=== PATIENT | female | born 1960 | race Two or more races ===

== ENCOUNTER → 2016-05-23 | Outpatient (CLI) | payer OTHER | END | disposition home or self-care (01) | LOC: LAB 09:23 | PROVIDERS: ATTEND Internal Medicine Gastroenterology | DX: R79.89 Other specified abnormal findings of blood chemistry (principal) | CPT/HCPCS: 36415; 83540; 83550; 86704; 86706; 86708; 86803; 87340 ==

== ENCOUNTER → 2016-07-06 | Outpatient (CLI) | payer OTHER | END | disposition home or self-care (01) | LOC: LAB 11:50 | PROVIDERS: ATTEND Family Medicine | DX: Z20.89 Contact with and (suspected) exposure to other communicable diseases (principal) | CPT/HCPCS: 86735; 86762; 86765 ==

== ENCOUNTER → 2016-07-10 | Outpatient (CLI) | payer OTHER | END | disposition home or self-care (01) | LOC: LAB 13:37 | PROVIDERS: ATTEND Internal Medicine Gastroenterology | DX: Z12.11 Encounter for screening for malignant neoplasm of colon (principal) | CPT/HCPCS: 82270 ==

== ENCOUNTER → 2016-07-17 | Outpatient (CLI) | payer OTHER ==
[2016-07-17 10:15] LABS: Basophils # (auto) 0 uL; Basophils % (auto) 0.4 % (0.0-2.0); Eosinophils # (auto) 0.5 uL; Eosinophils % (auto) 5.1 % (0.0-7.0); Hematocrit 44.4 % (36.0-46.0); Hemoglobin 15.3 g/dL (12.2-16.2); Lymphocytes # (auto) 2.8 uL; Lymphocytes % (auto) 28.3 % (10.0-50.0); Mean Corpuscular Hgb Conc. 34.5 g/dL (32.0-36.0); Mean Platelet Volume 8.9 fL (7.4-10.4); Monocytes # (auto) 0.8 uL; Monocytes % (auto) 8.3 % (0.0-12.0); Neutrophils # (auto) 5.6 uL; Neutrophils % (auto) 57.9 % (37.0-80.0); Platelet Count (auto) 291 10^3/uL (140-450); Red Cell Distribution Width 13.3 % (11.6-16.0); White Blood Cell 9.7 10^3/uL (4.4-10.8)
[2016-07-17 10:37] LABS: Partial Thromboplastin Time 26.9 sec (22.64-33.71); Prothrombin Time 10.3 sec (9.37-12.3)
== END | disposition home or self-care (01) ==
LOC: LAB 09:54
PROVIDERS: ATTEND Internal Medicine Gastroenterology
DX: R79.89 Other specified abnormal findings of blood chemistry (principal)
CPT/HCPCS: 36415; 85025; 85610; 85730

== ENCOUNTER → 2016-07-18 | Outpatient (CLI) | payer OTHER ==
[~2016-07-18] MED LIST: LIDOCAINE 2%HCL (LOCAL ANESTH.) INJ 20ML MDV ONE; MIDAZOLAM HCL 1MG/1ML-2 ML VIAL ONE; fentaNYL CITRATE 100 MCG/2 ML VL ONE
== END | disposition home or self-care (01) ==
LOC: CT 09:09
PROVIDERS: ATTEND Internal Medicine Gastroenterology
DX: R94.5 Abnormal results of liver function studies (principal)
CPT/HCPCS: 10022; 77012; J2250; J3010; 96374; 96375

== ENCOUNTER 2016-10-10 17:47 | Emergency (ER) | payer OTHER ==
[~2016-10-10] VITALS: Ht 157.5 cm; Wt 65.8 kg
[2016-10-10 17:57] VITALS: BP 169/88
== END 2016-10-10 23:31 | disposition left against medical advice (07) ==
LOC: ER 17:52
DX: R04.2 Hemoptysis (principal); Z53.21 Procedure and treatment not carried out due to patient leaving prior to being seen by health care provider

== ENCOUNTER 2016-10-12 13:25 | Emergency (ER) | payer OTHER ==
[~2016-10-12] VITALS: Ht 157.5 cm; Wt 65.8 kg
[2016-10-12 13:45] VITALS: BP 186/126
[2016-10-12 14:27] LABS: Basophils # (auto) 0 uL; Basophils % (auto) 0.4 % (0.0-2.0); Eosinophils # (auto) 0.5 uL; Eosinophils % (auto) 4.3 % (0.0-7.0); Hemoglobin 15.4 g/dL (12.2-16.2); Lymphocytes # (auto) 2.9 uL; Lymphocytes % (auto) 27.7 % (10.0-50.0); Mean Corpuscular Hemoglobin 29.8 pg (28.0-32.0); Mean Corpuscular Hgb Conc. 34.3 g/dL (32.0-36.0); Mean Corpuscular Volume 86.8 fL (80.0-100.0); Mean Platelet Volume 8.7 fL (7.4-10.4); Monocytes # (auto) 0.8 uL; Monocytes % (auto) 7.3 % (0.0-12.0); Neutrophils # (auto) 6.3 uL; Neutrophils % (auto) 60.3 % (37.0-80.0); Platelet Count (auto) 335 10^3/uL (140-450); Red Cell Distribution Width 13.8 % (11.6-16.0); White Blood Cell 10.4 10^3/uL (4.4-10.8)
[2016-10-12 15:28] LABS: Alkaline Phosphatase 130 U/L (45-117); Anion Gap 6 (5-15); BUN/Creatinine Ratio 18.2; Blood Urea Nitrogen 12 mg/dL (7-18); Carbon Dioxide 30 mmol/L (21-32); Chloride 104 mmol/L (98-107); GFR African American 119 mL/min; GFR Non-African American 98 mL/min; Glucose 91 mg/dL (74-106); Potassium 4.1 mmol/L (3.5-5.1); Sodium 140 mmol/L (136-145)
[2016-10-12 15:29] LABS: Albumin 3.7 g/dL (3.4-5.0); Aspartate Aminotransferase 18 U/L (15-37); Bilirubin, Total 0.4 mg/dL (0.2-1.0); Calcium 9.2 mg/dL (8.5-10.1); Magnesium 2.3 mg/dL (1.6-2.6)
== END 2016-10-12 15:27 | disposition left against medical advice (07) ==
LOC: ER 13:28
DX: R10.9 Unspecified abdominal pain (principal); K92.0 Hematemesis; Z53.21 Procedure and treatment not carried out due to patient leaving prior to being seen by health care provider
CPT/HCPCS: 36415; 71020; 80053; 83735; 84484; 85025; 93005

== ENCOUNTER → 2017-02-19 | Outpatient (CLI) | payer OTHER ==
[2017-02-19 07:47] LABS: Basophils # (auto) 0.1 uL; Basophils % (auto) 0.9 % (0.0-2.0); Eosinophils # (auto) 0.4 uL; Eosinophils % (auto) 5.8 % (0.0-7.0); Hematocrit 44.6 % (36.0-46.0); Hemoglobin 15.6 g/dL (12.2-16.2); Lymphocytes # (auto) 2.1 uL; Lymphocytes % (auto) 27.9 % (10.0-50.0); Mean Corpuscular Hemoglobin 30.4 pg (28.0-32.0); Mean Corpuscular Volume 86.7 fL (80.0-100.0); Mean Platelet Volume 8.4 fL (6.9-10.8); Monocytes # (auto) 0.5 uL; Monocytes % (auto) 7.1 % (0.0-12.0); Neutrophils # (auto) 4.3 uL; Neutrophils % (auto) 58.3 % (37.0-80.0); Platelet Count (auto) 253 10^3/uL (140-450); Red Cell Distribution Width 13.5 % (11.8-14.3); White Blood Cell 7.4 10^3/uL (4.4-10.8)
[2017-02-19 08:01] LABS: Urine Bilirubin Negative (Negative); Urine Blood Negative /uL (Negative); Urine Color Yellow (Yellow); Urine Glucose Normal (Normal); Urine Ketone Negative (Negative); Urine Mucus FEW (None Seen); Urine Nitrite Negative (Negative); Urine RBC <1 /hpf (0 - 4); Urine Squamous Epithelial Cell FEW /hpf (<5); Urine Urobilinogen Normal (Negative); Urine pH 6.5 (5.0-8.0)
[2017-02-19 08:09] LABS: Albumin 3.5 g/dL (3.4-5.0); Bilirubin, Total 0.5 mg/dL (0.2-1.0); Calcium 9.1 mg/dL (8.5-10.1); Potassium 3.9 mmol/L (3.5-5.1); Total Protein 7.4 g/dL (6.4-8.2)
== END | disposition home or self-care (01) ==
LOC: LAB 07:10
PROVIDERS: ATTEND Family Medicine
DX: Z00.00 Encounter for general adult medical examination without abnormal findings (principal); I10 Essential (primary) hypertension; K74.0 Hepatic fibrosis
CPT/HCPCS: 36415; 80053; 80061; 81001; 82306; 82607; 83036; 84443; 85025

== ENCOUNTER → 2018-02-22 | Outpatient (CLI) | payer OTHER | END | disposition home or self-care (01) | LOC: LAB 08:30 | PROVIDERS: ATTEND Family Medicine | DX: Z00.01 Encounter for general adult medical examination with abnormal findings (principal); Z12.11 Encounter for screening for malignant neoplasm of colon; I10 Essential (primary) hypertension; K75.81 Nonalcoholic steatohepatitis (NASH); F33.0 Major depressive disorder, recurrent, mild; E55.9 Vitamin D deficiency, unspecified | CPT/HCPCS: 82270 ==

== ENCOUNTER → 2018-02-22 | Outpatient (CLI) | payer OTHER ==
[2018-02-22 08:35] LABS: Basophils # (auto) 0.1 uL; Basophils % (auto) 0.6 % (0.0-2.0); Eosinophils # (auto) 0.5 uL; Eosinophils % (auto) 4.8 % (0.0-7.0); Hematocrit 48.1 % (36.0-46.0); Hemoglobin 16.3 g/dL (12.2-16.2); Lymphocytes # (auto) 2.3 uL; Lymphocytes % (auto) 24.5 % (10.0-50.0); Mean Corpuscular Hemoglobin 30.1 pg (28.0-32.0); Mean Corpuscular Volume 88.6 fL (80.0-100.0); Monocytes # (auto) 0.7 uL; Monocytes % (auto) 7.7 % (0.0-12.0); Neutrophils # (auto) 5.8 uL; Neutrophils % (auto) 62.4 % (37.0-80.0); Nucleated Red Blood Cells % 0.2 %; Platelet Count (auto) 282 10^3/uL (140-450); Red Blood Cells 5.43 10^6/uL (4.0-5.20); Red Cell Distribution Width 13.1 % (11.8-14.3); White Blood Cell 9.4 10^3/uL (4.4-10.8)
[2018-02-22 08:42] LABS: Urine Bacteria NONE SEEN /hpf (None Seen); Urine Blood Negative /uL (Negative); Urine Mucus FEW (None Seen); Urine Specific Gravity 1.017 (1.001-1.035); Urine WBC 5 /hpf (0 - 5)
[2018-02-22 08:50] LABS: Albumin 3.6 g/dL (3.4-5.0); Potassium 4.2 mmol/L (3.5-5.1)
[2018-02-22 08:54] LABS: BUN/Creatinine Ratio 13.2; Calcium 8.9 mg/dL (8.5-10.1)
[2018-02-22 08:55] LABS: Bilirubin, Total 0.6 mg/dL (0.2-1.0); Total Protein 7.7 g/dL (6.4-8.2)
== END | disposition home or self-care (01) ==
LOC: LAB 07:11
PROVIDERS: ATTEND Family Medicine
DX: Z00.01 Encounter for general adult medical examination with abnormal findings (principal); Z12.11 Encounter for screening for malignant neoplasm of colon; I10 Essential (primary) hypertension; E55.9 Vitamin D deficiency, unspecified; K75.81 Nonalcoholic steatohepatitis (NASH); F33.0 Major depressive disorder, recurrent, mild
CPT/HCPCS: 36415; 80053; 80061; 81001; 82306; 83036; 84443; 85025

== ENCOUNTER → 2019-09-25 | Outpatient (CLI) | payer OTHER ==
[2019-09-25 09:29] LABS: BUN/Creatinine Ratio 13.9; Calcium 9.8 mg/dL (8.5-10.1); Potassium 3.6 mmol/L (3.5-5.1)
== END | disposition home or self-care (01) ==
LOC: LAB 07:56
PROVIDERS: ATTEND Family Medicine
DX: Z01.812 Encounter for preprocedural laboratory examination (principal); D35.2 Benign neoplasm of pituitary gland
CPT/HCPCS: 36415; 80048

== ENCOUNTER → 2019-09-26 | Outpatient (CLI) | payer OTHER ==
[~2019-09-26] MED LIST changes: +IOHEXOL 300 MG/ML 100ML BOTTLE IJ ONE; -LIDOCAINE 2%HCL (LOCAL ANESTH.) INJ 20ML MDV ONE; -MIDAZOLAM HCL 1MG/1ML-2 ML VIAL ONE; -fentaNYL CITRATE 100 MCG/2 ML VL ONE
== END | disposition home or self-care (01) ==
LOC: CT 09:00
PROVIDERS: ATTEND Family Medicine
DX: D35.2 Benign neoplasm of pituitary gland (principal); I70.0 Atherosclerosis of aorta
CPT/HCPCS: 70488; 70553; Q9967

== ENCOUNTER → 2021-04-16 | Outpatient (CLI) | payer OTHER, BC ==
[2021-04-16 09:18] LABS: Basophils # (auto) 0.1 10 ^3/uL (0-0.2); Basophils % (auto) 0.9 % (0.0-2.0); Eosinophils # (auto) 0.4 10 ^3/uL (0-0.8); Eosinophils % (auto) 4.7 % (0.0-7.0); Hematocrit 43.9 % (36.0-46.0); Hemoglobin 15.4 g/dL (12.2-16.2); Lymphocytes # (auto) 1.8 10 ^3/uL (0.4-5.4); Lymphocytes % (auto) 23.6 % (10.0-50.0); Mean Corpuscular Hemoglobin 30.5 pg (28.0-32.0); Mean Corpuscular Hgb Conc. 35.2 g/dL (32.0-36.0); Mean Corpuscular Volume 86.7 fL (80.0-100.0); Monocytes # (auto) 0.6 10 ^3/uL (0-1.3); Monocytes % (auto) 7.8 % (0.0-12.0); Neutrophils # (auto) 4.9 10 ^3/uL (1.6-8.6); Red Blood Cells 5.06 10^6/uL (4.0-5.20); Red Cell Distribution Width 13.6 % (11.8-14.3); Urine Bacteria FEW /hpf (None Seen); Urine Blood Negative /uL (Negative); Urine Mucus FEW (None Seen); Urine WBC 4 /hpf (0 - 5); White Blood Cell 7.8 10^3/uL (4.4-10.8)
[2021-04-16 09:31] LABS: Albumin 3.5 g/dL (3.4-5.0); Calcium 9.5 mg/dL (8.5-10.1); Potassium 4.1 mmol/L (3.5-5.1)
[2021-04-16 09:35] LABS: Bilirubin, Total 0.6 mg/dL (0.2-1.0); Total Protein 7.1 g/dL (6.4-8.2)
== END | disposition home or self-care (01) ==
LOC: LAB 08:25
PROVIDERS: ATTEND Family Medicine
DX: I10 Essential (primary) hypertension (principal); F41.9 Anxiety disorder, unspecified; F33.0 Major depressive disorder, recurrent, mild; D53.2 Scorbutic anemia; J47.9 Bronchiectasis, uncomplicated
CPT/HCPCS: 36415; 80053; 80061; 81001; 82306; 82607; 84443; 85025

== ENCOUNTER → 2021-09-12 | Outpatient (CLI) | payer BC ==
[2021-09-12 08:41] LABS: Basophils # (auto) 0.1 10 ^3/uL (0-0.2); Basophils % (auto) 0.9 % (0.0-2.0); Eosinophils # (auto) 0.4 10 ^3/uL (0-0.8); Eosinophils % (auto) 4.3 % (0.0-7.0); Hematocrit 44.6 % (36.0-46.0); Hemoglobin 15.7 g/dL (12.2-16.2); Lymphocytes # (auto) 2.2 10 ^3/uL (0.4-5.4); Lymphocytes % (auto) 25.8 % (10.0-50.0); Mean Corpuscular Hemoglobin 30.7 pg (28.0-32.0); Mean Corpuscular Hgb Conc. 35.2 g/dL (32.0-36.0); Mean Corpuscular Volume 87.1 fL (80.0-100.0); Monocytes # (auto) 0.6 10 ^3/uL (0-1.3); Monocytes % (auto) 7.7 % (0.0-12.0); Neutrophils # (auto) 5.1 10 ^3/uL (1.6-8.6); Neutrophils % (auto) 61.3 % (37.0-80.0); Nucleated Red Blood Cells % 0.1 %; Red Blood Cells 5.12 10^6/uL (4.0-5.20); Red Cell Distribution Width 13.5 % (11.8-14.3); White Blood Cell 8.4 10^3/uL (4.4-10.8)
[2021-09-12 08:52] LABS: Urine Bacteria NONE SEEN /hpf (None Seen); Urine Blood Negative /uL (Negative); Urine Mucus FEW (None Seen); Urine Specific Gravity 1.019 (1.001-1.035); Urine WBC 3 /hpf (0 - 5)
[2021-09-12 09:02] LABS: Albumin 3.6 g/dL (3.4-5.0); Calcium 10.2 mg/dL (8.5-10.1); Potassium 4.2 mmol/L (3.5-5.1)
[2021-09-12 09:08] LABS: BUN/Creatinine Ratio 19.7; Bilirubin, Total 0.6 mg/dL (0.2-1.0); Total Protein 7.7 g/dL (6.4-8.2)
== END | disposition home or self-care (01) ==
LOC: LAB 08:09
PROVIDERS: ATTEND Student in an Organized Health Care Education/Training Program
DX: Z12.11 Encounter for screening for malignant neoplasm of colon (principal); I10 Essential (primary) hypertension; R73.9 Hyperglycemia, unspecified
CPT/HCPCS: 36415; 80053; 80061; 81001; 82274; 83036; 85025

== ENCOUNTER → 2022-07-17 | Outpatient (CLI) | payer BC ==
[2022-07-17 08:48] LABS: Urine Bacteria NONE SEEN /hpf (None Seen); Urine Blood Negative /uL (Negative); Urine Mucus FEW (None Seen); Urine Specific Gravity 1.018 (1.001-1.035); Urine WBC 2 /hpf (0 - 5)
[2022-07-17 09:06] LABS: Basophils # (auto) 0.3 10 ^3/uL (0-0.2); Basophils % (auto) 3.6 % (0.0-2.0); Eosinophils # (auto) 0.5 10 ^3/uL (0-0.8); Hematocrit 45.6 % (36.0-46.0); Hemoglobin 16.1 g/dL (12.2-16.2); Lymphocytes # (auto) 1.5 10 ^3/uL (0.4-5.4); Lymphocytes % (auto) 16.2 % (10.0-50.0); Mean Corpuscular Hemoglobin 31.4 pg (28.0-32.0); Mean Corpuscular Hgb Conc. 35.3 g/dL (32.0-36.0); Mean Corpuscular Volume 88.8 fL (80.0-100.0); Monocytes # (auto) 0.4 10 ^3/uL (0-1.3); Monocytes % (auto) 4.1 % (0.0-12.0); Neutrophils # (auto) 6.7 10 ^3/uL (1.6-8.6); Neutrophils % (auto) 71.1 % (37.0-80.0); Nucleated Red Blood Cells % 0.1 %; Red Blood Cells 5.14 10^6/uL (4.0-5.20); Red Cell Distribution Width 13.7 % (11.8-14.3); White Blood Cell 9.5 10^3/uL (4.4-10.8)
[2022-07-17 09:40] LABS: Albumin 4.1 g/dL (3.4-5.0); Calcium 10.5 mg/dL (8.5-10.1); Potassium 3.7 mmol/L (3.5-5.1)
[2022-07-17 09:54] LABS: BUN/Creatinine Ratio 18.2; Bilirubin, Total 0.5 mg/dL (0.2-1.0); Total Protein 7.9 g/dL (6.4-8.2)
== END | disposition home or self-care (01) ==
LOC: LAB 08:08
PROVIDERS: ATTEND Student in an Organized Health Care Education/Training Program
DX: I10 Essential (primary) hypertension (principal); R03.0 Elevated blood-pressure reading, without diagnosis of hypertension
CPT/HCPCS: 36415; 80053; 80061; 81001; 83036; 84443; 85025

== ENCOUNTER → 2022-12-22 | Outpatient (CLI) | payer BC ==
[2022-12-22 09:33] LABS: Basophils # (auto) 0.1 10 ^3/uL (0-0.2); Basophils % (auto) 0.7 % (0.0-2.0); Eosinophils # (auto) 0.4 10 ^3/uL (0-0.8); Hematocrit 44.7 % (36.0-46.0); Hemoglobin 15.2 g/dL (12.2-16.2); Lymphocytes # (auto) 2.2 10 ^3/uL (0.4-5.4); Lymphocytes % (auto) 23.2 % (10.0-50.0); Mean Corpuscular Hemoglobin 29.8 pg (28.0-32.0); Mean Corpuscular Hgb Conc. 33.9 g/dL (32.0-36.0); Mean Corpuscular Volume 87.9 fL (80.0-100.0); Monocytes # (auto) 0.7 10 ^3/uL (0-1.3); Neutrophils % (auto) 64.1 % (37.0-80.0); Nucleated Red Blood Cells % 0.1 %; Red Blood Cells 5.09 10^6/uL (4.0-5.20); Red Cell Distribution Width 13.2 % (11.8-14.3); White Blood Cell 9.4 10^3/uL (4.4-10.8)
[2022-12-22 09:39] LABS: Potassium 4.1 mmol/L (3.5-5.1)
[2022-12-22 09:41] LABS: Urine Bacteria NONE SEEN /hpf (None Seen); Urine Blood Negative /uL (Negative); Urine Clarity Clear (Clear); Urine Color Yellow (Yellow); Urine Mucus FEW (None Seen); Urine Protein, UAD TRACE (Negative); Urine Specific Gravity 1.021 (1.001-1.035); Urine Urobilinogen Normal (Negative); Urine WBC 3 /hpf (0 - 5); Urine pH 5.5 (5.0-8.0)
== END | disposition home or self-care (01) ==
LOC: LAB 08:34
PROVIDERS: ATTEND Student in an Organized Health Care Education/Training Program
DX: I10 Essential (primary) hypertension (principal); E78.5 Hyperlipidemia, unspecified
CPT/HCPCS: 36415; 80048; 80061; 81001; 84443; 85025

== ENCOUNTER → 2023-04-16 | Outpatient (CLI) | payer BC ==
[2023-04-16 07:52] LABS: Basophils # (auto) 0.1 10 ^3/uL (0-0.2); Basophils % (auto) 0.9 % (0.0-2.0); Eosinophils # (auto) 0.4 10 ^3/uL (0-0.8); Eosinophils % (auto) 4.3 % (0.0-7.0); Hematocrit 45.7 % (36.0-46.0); Hemoglobin 15.4 g/dL (12.2-16.2); Lymphocytes # (auto) 2.3 10 ^3/uL (0.4-5.4); Lymphocytes % (auto) 24.9 % (10.0-50.0); Mean Corpuscular Hemoglobin 29.6 pg (28.0-32.0); Mean Corpuscular Hgb Conc. 33.7 g/dL (32.0-36.0); Mean Corpuscular Volume 87.7 fL (80.0-100.0); Monocytes # (auto) 0.7 10 ^3/uL (0-1.3); Monocytes % (auto) 7.6 % (0.0-12.0); Neutrophils # (auto) 5.8 10 ^3/uL (1.6-8.6); Neutrophils % (auto) 62.3 % (37.0-80.0); Nucleated Red Blood Cells % 0.1 %; Red Blood Cells 5.21 10^6/uL (4.0-5.20); Red Cell Distribution Width 13.7 % (11.8-14.3); White Blood Cell 9.3 10^3/uL (4.4-10.8)
[2023-04-16 08:03] LABS: Triglycerides 85 mg/dL (< 150)
[2023-04-16 08:04] LABS: Alanine Aminotransferase 28 U/L (7-40); Albumin 4.5 g/dL (3.2-4.8); Alkaline Phosphatase 101 U/L (46-116); Anion Gap 6 (5-15); Aspartate Aminotransferase 22 U/L (13-40); BUN/Creatinine Ratio 18.2 (10.0-20.0); Bilirubin, Total 0.7 mg/dL (0.2-1.0); Blood Urea Nitrogen 14 mg/dL (9-23); Calcium 10.1 mg/dL (8.5-10.1); Carbon Dioxide 29 mmol/L (20-30); Chloride 107 mmol/L (98-107); Cholesterol 175 mg/dL (< 200); Glucose 97 mg/dL (74-106); HDL Cholesterol 52 mg/dL (40-59); LDL Cholesterol 122 mg/dL (< 100); Sodium 142 mmol/L (136-145); Total Protein 7.1 g/dL (5.7-8.2); Urine Blood 3+ /uL (Negative); Urine Clarity Clear (Clear); Urine Color Yellow (Yellow); Urine Protein, UAD TRACE (Negative); Urine Urobilinogen Normal (Negative); Urine pH 6.5 (5.0-8.0)
== END | disposition home or self-care (01) ==
LOC: LAB 07:21
DX: I10 Essential (primary) hypertension (principal)
CPT/HCPCS: 36415; 80053; 80061; 81003; 83036; 84443; 85025

== ENCOUNTER → 2023-05-16 | Outpatient (CLI) | payer BC ==
[2023-05-16 08:03] LABS: Chloride 107 mmol/L (98-107); Potassium 4.1 mmol/L (3.5-5.1); Sodium 142 mmol/L (136-145)
[2023-05-16 08:04] LABS: Anion Gap 6 (5-15); Calcium 10.3 mg/dL (8.5-10.1); Carbon Dioxide 29 mmol/L (20-30)
[2023-05-16 08:09] LABS: Blood Urea Nitrogen 9 mg/dL (9-23); Glucose 104 mg/dL (74-106)
== END | disposition home or self-care (01) ==
LOC: LAB 07:29
PROVIDERS: ATTEND Student in an Organized Health Care Education/Training Program
DX: N28.89 Other specified disorders of kidney and ureter (principal)
CPT/HCPCS: 36415; 80048

== ENCOUNTER → 2023-11-20 | Outpatient (CLI) | payer BC ==
[2023-11-20 07:24] LABS: Urine Bacteria None Seen /hpf (None Seen)
[2023-11-20 07:34] LABS: Basophils # (auto) 0.1 10 ^3/uL (0-0.2); Basophils % (auto) 0.6 % (0.0-2.0); Eosinophils # (auto) 0.3 10 ^3/uL (0-0.8); Eosinophils % (auto) 3.7 % (0.0-7.0); Hematocrit 45.5 % (36.0-46.0); Lymphocytes # (auto) 1.9 10 ^3/uL (0.4-5.4); Lymphocytes % (auto) 20.2 % (10.0-50.0); Mean Corpuscular Hemoglobin 30.2 pg (28.0-32.0); Mean Corpuscular Hgb Conc. 35.2 g/dL (32.0-36.0); Mean Corpuscular Volume 85.7 fL (80.0-100.0); Monocytes # (auto) 0.7 10 ^3/uL (0-1.3); Monocytes % (auto) 7.6 % (0.0-12.0); Neutrophils # (auto) 6.3 10 ^3/uL (1.6-8.6); Neutrophils % (auto) 67.9 % (37.0-80.0); Nucleated Red Blood Cells % 0.1 %; White Blood Cell 9.3 10^3/uL (4.4-10.8)
[2023-11-20 08:24] LABS: Urine Blood Negative /uL (Negative); Urine Clarity Clear (Clear); Urine Color Yellow (Yellow); Urine Mucus FEW (None Seen); Urine Protein, UAD 1+ (Negative); Urine Specific Gravity 1.025 (1.001-1.035); Urine Urobilinogen 2 mg/dL (Negative); Urine WBC 1 /hpf (0 - 5)
[2023-11-20 08:50] LABS: Alkaline Phosphatase 115 U/L (46-116)
[2023-11-20 08:51] LABS: Alanine Aminotransferase 27 U/L (7-40); Albumin 4.4 g/dL (3.2-4.8); Anion Gap 5 (5-15); Aspartate Aminotransferase 16 U/L (13-40); BUN/Creatinine Ratio 15.6 (10.0-20.0); Bilirubin, Total 0.6 mg/dL (0.2-1.0); Blood Urea Nitrogen 12 mg/dL (9-23); Calcium 10.6 mg/dL (8.5-10.1); Carbon Dioxide 30 mmol/L (20-30); Chloride 108 mmol/L (98-107); Glucose 106 mg/dL (74-106); Potassium 4.7 mmol/L (3.5-5.1); Sodium 143 mmol/L (136-145); Total Protein 7.1 g/dL (5.7-8.2)
== END | disposition home or self-care (01) ==
LOC: LAB 07:14
PROVIDERS: ATTEND Student in an Organized Health Care Education/Training Program
DX: Z12.11 Encounter for screening for malignant neoplasm of colon (principal); I10 Essential (primary) hypertension
CPT/HCPCS: 36415; 80053; 81001; 82274; 85025

== ENCOUNTER → 2024-05-19 | Outpatient (CLI) | payer BC ==
[2024-05-19 08:54] LABS: Urine Bacteria None Seen /hpf (None Seen)
[2024-05-19 09:50] LABS: Basophils # (auto) 0.1 10 ^3/uL (0-0.2); Basophils % (auto) 0.8 % (0.0-2.0); Eosinophils # (auto) 0.4 10 ^3/uL (0-0.8); Eosinophils % (auto) 4.2 % (0.0-7.0); Hematocrit 47.7 % (36.0-46.0); Hemoglobin 16.2 g/dL (12.2-16.2); Lymphocytes % (auto) 23.9 % (10.0-50.0); Mean Corpuscular Volume 88.4 fL (80.0-100.0); Monocytes # (auto) 0.6 10 ^3/uL (0-1.3); Neutrophils # (auto) 5.3 10 ^3/uL (1.6-8.6); Neutrophils % (auto) 64.1 % (37.0-80.0); Nucleated Red Blood Cells % 0.2 %; Platelet Count (auto) 254 10^3/uL (140-450); Red Cell Distribution Width 13.9 % (11.8-14.3); White Blood Cell 8.3 10^3/uL (4.4-10.8)
[2024-05-19 10:34] LABS: Albumin 4.4 g/dL (3.2-4.8); Alkaline Phosphatase 114 U/L (46-116); Anion Gap 8 (5-15); Aspartate Aminotransferase 29 U/L (13-40); BUN/Creatinine Ratio 16.2 (10.0-20.0); Blood Urea Nitrogen 12 mg/dL (9-23); Carbon Dioxide 29 mmol/L (20-31); Chloride 106 mmol/L (98-107); Cholesterol 179 mg/dL (< 200); Glucose 95 mg/dL (74-106); Potassium 4.4 mmol/L (3.5-5.1); Sodium 143 mmol/L (136-145); Triglycerides 79 mg/dL (< 150)
[2024-05-19 10:35] LABS: Bilirubin, Total 0.6 mg/dL (0.2-1.0); HDL Cholesterol 53 mg/dL (40-59); Total Protein 7.2 g/dL (5.7-8.2)
[2024-05-19 10:37] LABS: Alanine Aminotransferase 45 U/L (7-40); Calcium 11.1 mg/dL (8.7-10.4); LDL Cholesterol 124 mg/dL (< 100)
[2024-05-19 11:07] LABS: Urine Blood Negative /uL (Negative); Urine Clarity Clear (Clear); Urine Color Light-Yellow (Yellow); Urine Mucus FEW (None Seen); Urine Protein, UAD Negative (Negative); Urine Specific Gravity 1.019 (1.001-1.035); Urine Squamous Epithelial Cell FEW /hpf (<5); Urine Urobilinogen Normal (Negative); Urine WBC <1 /hpf (0 - 5)
== END | disposition home or self-care (01) ==
LOC: LAB 08:40
PROVIDERS: ATTEND Student in an Organized Health Care Education/Training Program
DX: I10 Essential (primary) hypertension (principal); R73.9 Hyperglycemia, unspecified
CPT/HCPCS: 36415; 80053; 80061; 81001; 83036; 84443; 85025

== ENCOUNTER 2024-11-20 08:35 | Inpatient (IN) | payer MEDICARE, BC ==
[~2024-11-20] VITALS: Ht 154.9 cm; Wt 72.1 kg
--- NOTE | 2024-11-20 09:00 | ED.PDOC ---
GI ASSESSMENT HPI Comments A 64 YEAR OLD FEMALE PRESENTS TO THE ED WITH COMPLAINT OF ABDOMINAL PAIN. PATIENT STATES THAT HER PAIN IS LOCALIZED TO HER RIGHT UPPER QUADRANT, RADIATING TO HER MIDDLE BACK, DESCRIBES SHARP, AND RATES HER PAIN A 7/10. PATIENT DENIES ANY NAUSEA, VOMITING OR DIARRHEA WITH HER ABDOMEN PAIN. PATIENT STILL HAS HER GALLBLADDER. PT WENT TO URGENT CARE TODAY AND URGENT CARE SENT PT TO ER FOR EVALUATION. PATIENT DENIES FEVER, CHILLS, SHORTNESS OF BREATH, CHEST PAIN, NAUSEA, VOMITING, HEADACHE, OR OTHER COMPLAINTS. NO OTHER SYMPTOMS OR MODIFYING FACTORS AT THIS TIME. PATIENT IS ALERT, ORIENTED X 4, AND HAS STEADY GAIT. Time Seen by MD: 08:50 Reviewed Notes: Nurses Notes, Medications, Allergies Allergies: Coded Allergies: Codeine (Verified Allergy, Unknown, 10/12/16) Information Source: Patient Mode of Arrival: Ambulatory Timing: Days Duration: Since onset, Days Prehospital treatment: None Quality: Cramping, Sharp, Colicky Vomitus: None Stool: Normal Severity: Moderate Recent: None Recent Hx of: None Pain Location: RUQ, Other (FLANK ) Modifying Factors: Nothing Associated sign and symptoms: Abdominal Pain Past Medical History PAST MEDICAL HISTORY: Denies Surgical History: Denies all surgeries [employer] History: No Pertinent [employer] History Family History Family History: Reviewed,noncontributory to illness Social History Smoker: Non-Smoker Alcohol: Denies ETOH Use Drugs: Denies Drug Use Lives In: Home Constitutional: denies: chills, diaphoresis, fatigue, fever, malaise, sweats, weakness, others EENTM: denies: blurred vision, double vision, ear bleeding, ear discharge, ear drainage, ear pain, ear ringing, eye pain, eye redness, hearing loss, mouth pain, mouth swelling, nasal discharge, nose bleeding, nose congestion, nose pain, photophobia, tearing, throat pain, throat swelling, voice changes, others Respiratory: denies: cough, hemoptysis, orthopnea, SOB at rest, shortness of breath, SOB with excertion, stridor, wheezing, others Cardiovascular: denies: chest pain, dizzy spells, diaphoresis, Dyspnea on exertion, edema, irregular heart beat, left arm pain, lightheadedness, palp itations, PND, syncope, others Gastrointestinal: reports: abdominal pain; denies: abdomen distended, blood streaked bowels, constipated, diarrhea, dysphagia, difficulty swallowing, hematemesis, melena, nausea, poor appetite, poor fluid intake, rectal bleeding, rectal pain, vomiting, others Genitourinary: reports: flank pain; denies: abnormal vagina bleeding, burning, dyspareunia, dysuria, frequency, hematuria, incontinence, pain, , vagina discharge, urgency, others Neurological: denies: dizziness, fainting, headache, left sided numbness, left sided weakness, numbness, paresthesia, pre-existing deficit, right sided numbness, right sided weakness, seizure, speech problems, tingling, tremors, weakness, others Musculoskeletal: denies: back pain, gout, joint pain, joint swelling, muscle pain, muscle stiffness, neck pain, others Integumetry: denies: bruises, change in color, change in hair/nails, dryness, laceration, lesions, lumps, rash, wounds, others Allergic/Immunocompromised: denies: Difficulty Healing, Frequent Infections, Hives, Itching, others Hematologic/Lymphatic: denies: anemia, blood clots, easy bleeding, easy bruising, swollen glands, others Endocrine: denies: excessive hunger, excessive sweating, excessive thirst, excessive urination, flushing, intolerance to cold, intolerance to heat, unexplained weight gain, unexplained weight loss, others Psychiatric: denies: anxiety, bipolar disorder, depression, hopeless, panic disorder, schizophrenia, sleepless, suicidal, others All Other Systems: Reviewed and Negative Physical Exam General Appearance: No Apparent Distress, Normal HEENT: Normal ENT Inspection, PERRL/EOMI, Pharynx Normal, TMs Normal Neck: Full Range of Motion, Non-Tender, Normal, Normal Inspection Respiratory: Chest Non-Tender, Lungs Clear, No Accessory Muscle Use, No Respiratory Distress, Normal Breath Sounds Cardiovascular: No Edema, No JVD, No Murmur, No Gallop, Normal Peripheral Pulses, Regular Rate/Rhythm Breast Exam: Deferred Gastrointestinal: No Organomegaly, No Pulsatile Mass, Normal Bowel Sounds, RUQ, Soft, Tenderness (RIGHT UPPER ABD AND FLANK WITH GUARDING, NO REBOUND TENDERNESS, +CVA TENDERNESS. ) Genitalia: Deferred Pelvic: Deferred Rectal: Deferred Extremities: No calf tenderness, Normal capillary refill, Normal inspection, N ormal range of motion, Non-tender, No pedal edema Musculoskeletal : Apperance: Normal Neurologic: Alert, condenser setter II-XII nml as Tested, No Motor Deficits, Normal Affect, Normal Mood, No Sensory Deficits Cerebellar Function: Normal Reflexes: Normal Skin: Dry, Normal Color, Warm Peripheral Pulses: 2+ carotid (R), 2+ carotid (L) Lymphatic: No Adenopathy Was a procedure done? Was a procedure done?: No GI differential Dx Differential Diagnosis: Cholangitis, Cholecystitis, Constipation, Gastritis/PUD, Gastroenteritis, UTI, Urolithiasis X-Ray, Labs, Meds, VS Vital Signs Date Time Temp Pulse Resp B/P (MAP) Pulse Ox O2 Delivery O2 Flow Rate FiO2 11/20/24 11:07 98.4 64 18 140/84 (102) 95 98.4 11/20/24 08:40 98.7 95 16 137/91 (106) 93 98.7 Lab Test 11/20/24 08:51 11/20/24 08:45 Range/Units White Blood Count 11.3 H 4.4-10.8 10^3/uL Red Blood Count 5.60 H 4.0-5.20 10^6/uL Hemoglobin 16.8 H 12.2-16.2 g/dL Hematocrit 48.5 H 36.0-46.0 % Mean Corpuscular Volume 86.5 80.0-100.0 fL Mean Corpuscular Hemoglobin 30.0 28.0-32.0 pg Mean Corpuscular Hemoglobin Concent 34.7 32.0-36.0 g/dL Red Cell Distribution Width 13.7 11.8-14.3 % Platelet Count 287 140-450 10^3/uL Mean Platelet Volume 9.0 6.9-10.8 fL Neutrophils (%) (Auto) 71.3 37.0-80.0 % Lymphocytes (%) (Auto) 17.8 10.0-50.0 % Monocytes (%) (Auto) 8.2 0.0-12.0 % Eosinophils (%) (Auto) 2.0 0.0-7.0 % Basophils (%) (Auto) 0.7 0.0-2.0 % Neutrophils # (Auto) 8.1 1.6-8.6 10 ^3/uL Lymphocytes # (Auto) 2.0 0.4-5.4 10 ^3/uL Monocytes # (Auto) 0.9 0-1.3 10 ^3/uL Eosinophils # (Auto) 0.2 0-0.8 10 ^3/uL Basophils # (Auto) 0.1 0-0.2 10 ^3/uL Nucleated Red Blood Cells 4.1 % Sodium Level 141 136-145 mmol/L Potassium Level 4.0 3.5-5.1 mmol/L Chloride Level 105 98-107 mmol/L Carbon Dioxide Level 28 20-31 mmol/L Anion Gap 8 5-15 Blood Urea Nitrogen 9 9-23 mg/dL Creatinine 0.72 0.550-1.02 mg/dL Glomerular Filtration Rate Calc 93 >90 mL/min BUN/Creatinine Ratio 12.5 10.0-20.0 Serum Glucose 91 74-106 mg/dL Calcium Level 11.1 H 8.7-10.4 mg/dL Total Bilirubin 0.6 0.2-1.0 mg/dL Aspartate Amino Transferase (AST) 24 13-40 U/L Alanine Aminotransferase (ALT) 26 7-40 U/L Alkaline Phosphatase 115 46-116 U/L Total Protein 7.4 5.7-8.2 g/dL Albumin 4.7 3.2-4.8 g/dL Lipase 37 12-53 U/L Urine Color Yellow Yellow Urine Clarity Clear Clear Urine pH 7.0 5.0-9.0 Urine Specific [place] 1.013 1.001-1.035 Urine Protein Negative Negative Urine Ketones Negative Negative Urine Blood Negative Negative /uL Urine Nitrite Negative Negative Urine Bilirubin Negative Negative Urine Urobilinogen Normal Negative mg/dL Urine Leukocyte Esterase Trace Negative /uL Urine RBC 1 0 - 4 /hpf Urine Microscopic WBC 1 0-5 /HPF Urine Squamous Epithelial Cells Few <5 /hpf Urine Bacteria None seen None Seen /hpf Urine Glucose Normal Normal mg/dL Current Medications Medications (Trade) Dose Ordered Sig/Chidi Route Start Time Stop Time Status Last Admin Sodium Chloride 1,000 ml @ 1,000 mls/hr Q1H ONCE IV 11/20/24 13:15 11/20/24 14:14 DC 11/20/24 13:19 Ketorolac Tromethamine (Toradol Injection) 30 mg ONCE ONCE IV 11/20/24 13:15 11/20/24 13:16 DC 11/20/24 13:19 Metronidazole 100 ml @ 100 mls/hr ONCE ONCE IV 11/20/24 14:00 11/20/24 14:59 11/20/24 14:41 PATIENT: KINGSLEY HAYWOODCCT: [id number]: [id number] : 1960 LOC: ER ROOM / BED: / AGE / SEX: 64 / F ADM STATUS: REG ER SERVICE [id number] ORDERING PHYSICIAN: JESE CHRIS PROCEDURE(s): GBUS - GALLBLADDER REASON: RIGHT UPPER ABD PAIN TO MIDDLE BACK ORDER NUMBER(s): [id number], ACCESSION NUMBER(s): [id number] INDICATION: RIGHT UPPER ABD PAIN TO MIDDLE BACK TECHNIQUE: Multiple real-time sonographic images were obtained of the right upper quadrant. COMPARISON: None FINDINGS: Diffuse steatosis. Measures 17.4 cm. Simple hepatic cyst is seen centrally measuring up to 1.1 cm. The liver measures 17.4 cm. There is no intrahepatic or extrahepatic ductal dilatation. The common duct measures 0.4 mm. The gallbladder is without evidence of stone or sludge. The gallbladder wall measures 0.1 mm and is within normal limits. Simple cyst is noted measuring up to 1 cm. The right kidney measures 9.1 cm. The right kidney is normal in contour, size, and shape. The echogenicity is normal. There is no hydronephrosis. Simple cyst is noted measuring up to 6.3 cm. Stone is seen in the midpole measuring up to 0.7 cm The left kidney measures 10.2 cm. The left kidney is normal in contour, size, and shape. The echogenicity is normal. There is no hydronephrosis. The pancreas is not well visualized due to overlying bowel gas. IMPRESSION: 1. No sonographic evidence of gallstones or acute cholecystitis. 2. Right renal nephrolithiasis without hydronephrosis. 3. Hepatic steatosis. ATED BY: JOSEE ACUÑA MD DICTATED DATE/TIME: 11/20/241052 SIGNED BY: JOSEE ACUÑA MD SIGNED DATE/TIME: 11/20/241052 PATIENT: LUCY HAYWOOD ACCT: [id number] UNIT: [id number] : 1960 LOC: ER ROOM / BED: / AGE / SEX: 64 / F ADM STATUS: REG ER SERVICE 1120 ORDERING PHYSICIAN: JESE CHRIS PROCEDURE(s): ABPL - CT AB PEL WO CON-NO ORAL OR IV REASON: RIGHT UPPER ABD PAIN TO RIGHT FLANK ORDER NUMBER(s): [id number], ACCESSION NUMBER(s): [id number] Exam: CT CT AB PEL WO CON-NO ORAL OR IV History: RIGHT UPPER ABD PAIN TO RIGHT FLANK Comparison Study: None Technique: Multidetector spiral CT of the abdomen was performed from lung bases to pubic symphysis. Imaging was performed without IV contrast. Axial, coronal and sagittal multiplanar reformats were obtained from the axial data set by the technologist. Radiation Dose : 1. Abdomen/Pelvis: CTDIvol 11.3 mGy, DLP 591 mGy*cm. Findings: Evaluation of solid organs is limited due to lack of intravenous contrast use. Lung Bases: No acute or significant lung base finding. Normal heart size. No pleural or pericardial effusion. Liver: The liver is normal in size. No focal lesions. Diffuse steatosis. Gallbladder and Biliary Tree: Unremarkable Spleen: Unremarkable Pancreas: The pancreas is grossly normal in appearance. Adrenal Glands: Unremarkable Kidneys: Bilateral nephrolithiasis without hydronephrosis. Bladder: Grossly unremarkable for degree of distention. Bowel: The stomach is grossly normal in appearance. No evidence of bowel obstruction. Focal inflammation in the proximal transverse colon may reflect mild diverticulitis. The appendix is not visualized; however, no secondary findings of acute appendicitis identified. Ascites: Absent Lymphadenopathy: No mesenteric, retroperitoneal or periportal lymphadenopathy. Abdominal Wall and Mesentery: Unremarkable. Vasculature: The visualized abdominal aorta is normal in size and caliber. Evaluation of abdominal and pelvic vessels is limited due to lack of intravenous contrast. Pelvic Organs: Unremarkable Musculoskeletal: No aggressive focal bony lesions, acute fractures or dislocation. IMPRESSION: 1. Focal inflammation in the proximal transverse colon may reflect mild diverticulitis. 2. Bilateral nephrolithiasis without hydronephrosis. 3. Hepatic steatosis. Radiation optimization: All CT scans at this facility use at least one of these dose optimization techniques: automated exposure control mA and/or kV adjustment per patient size (includes targeted exams where dose is matched to clinical indication) or iterative reconstruction. ATED BY: JOSEE ACUÑA MD DICTATED DATE/TIME: 11/20/24 122 SIGNED BY: JOSEE ACUÑA MD SIGNED DATE/TIME: 11/20/24 122 X-Ray, Labs, Meds, VS Comment EXTERNAL MEDICAL RECORDS: NONE INDEPENDENT HISTORIANS: NONE SOCIAL DETERMINANTS OF HEALTH: NONE LABS ORDERED: CBC, CMP, LIPASE, UA REVIEWED AND INTERPRETED RESULTS: NONE IMAGING ORDERED: GALLBLADDER US TREATMENTS ORDERED: 0.9 NS 1L IV, TORADOL 30MG IVP, FLAGYL 500MG IVP AND LEVAQUIN 500MG IVP PATIENT'S CASE AND RESULTS HAVE BEEN DISCUSSED WITH DR. HERNANDEZ AND THEY AGREE WITH MY PLAN OF CARE. PATIENT COMPLAINING ABOUT RUQ PAIN THAT RADIATES TO HER FLANK. PAIN WAS RATED A 8/10, ABD US SHOWED: 7MM KIDNEY STONE, CT-ABD/PELVIC : MILD DIVERTICULITIS. DUE TO PT'S PAIN LEVEL IS 8/10 AND IMAGINE RESULTS. PATIENT WILL BE ADMITTED TO HOSPITAL FOR FURTHER TREATMENT AND EVALUATION. Time of 1ST Reevaluation: 09:20 Reevaluation 1ST: Unchanged Time of 2ND Reevaluation: 14:00 Reevaluation 2ND: Unchanged Patient Education/Counseling: Diagnosis, Treatment Family Education/Counseling: Diagnosis, Treatment SEPSIS Sepsis Screen Physician Orders Gallbladder (11/20/24 08:46) Ct Ab Pel Wo Con-No Oral Or Iv (11/20/24 11:20) Heplock Iv (11/20/24 ) Metronidazole 500mg/100ml (Flagyl 500mg/ (11/20/24 14:00) Levofloxacin 500mg (Levaquin 500mg/ 100m (11/20/24 14:00) Clear Liq Diet (11/20/24 Dinner) Ceftriaxone 1gm/50ml D5w (Rocephin) (11/21/24 09:00) Metronidazole 500mg/100ml (Flagyl 500mg/ (11/20/24 22:00) Basic Metabolic Panel (11/21/24 04:00) Admit (11/20/24 14:18) Temazepam (Restoril) (11/20/24 14:30) Ondansetron Hcl (Zofran) (11/20/24 14:30) Complete Blood Count (11/21/24 04:00) Condition: Stable (11/20/24 14:18) Acetaminophen Tablet (Tylenol Tablet) (11/20/24 14:30) Bedrest With Bathroom Privileg (11/20/24 14:18) Vital Signs Date Time Temp Pulse Resp B/P (MAP) Pulse Ox O2 Delivery O2 Flow Rate FiO2 11/20/24 11:07 98.4 64 18 140/84 (102) 95 98.4 11/20/24 08:40 98.7 95 16 137/91 (106) 93 98.7 Laboratory Tests Test 11/20/24 08:51 White Blood Count 11.3 10^3/uL (4.4-10.8) H Medications Medications Dose Ordered Sig/Chidi Route Start Time Stop Time Status Last Admin Dose Admin Ketorolac Tromethamine 30 mg ONCE ONCE IV 11/20/24 13:15 11/20/24 13:16 DC 11/20/24 13:19 Metronidazole 100 ml @ 100 mls/hr ONCE ONCE IV 11/20/24 14:00 11/20/24 14:59 11/20/24 14:41 Sodium Chloride 1,000 ml @ 1,000 mls/hr Q1H ONCE IV 11/20/24 13:15 11/20/24 14:14 DC 11/20/24 13:19 Departure 1 Departure Time of Disposition: 14:00 Impression: Primary Impression: Acute diverticulitis Additional Impression: Nephrolithiasis Disposition: ADMITTED INPATIENT Condition: Serious Critical Care Note Critical Care Time?: No Stability Stability form required: Yes Unstable for transfer: Requires medication, ED Physician Assesment, Possible rapid decline Heart Score Heart Score: Heart Score Response (Comments) Value History N/A 0 EKG N/A 0 Age N/A 0 Risk Factors N/A 0 Troponin N/A 0 Total 0 I personally scribed for JESE CHRIS ([email or web address]) on 11/20/24 at 09:00. Electronically submitted by Drake Guadarrama ([email or web address]). I personally scribed for JESE CHRIS ([email or web address]) on 11/20/24 at 11:02. Electronically submitted by Drake Guadarrama ([email or web address]). I personally scribed for JESE CHRIS ([email or web address]) on 11/20/24 at 11:08. Electronically submitted by Drake Guadarrama ([email or web address]). I personally scribed for JESE CHRIS ([email or web address]) on 11/20/24 at 13:20. E lectronically submitted by Drake Guadarrama ([email or web address]). I personally scribed for JESE CHRIS ([email or web address]) on 11/20/24 at 14:36. Carine ctronically submitted by Drake Guadarrama ([email or web address]). JESE CHRIS Nov 20, 2024 09:00
[2024-11-20 09:15] LABS: Hematocrit 48.5 % (36.0-46.0); Hemoglobin 16.8 g/dL (12.2-16.2); Mean Corpuscular Hemoglobin 30.0 pg (28.0-32.0); Mean Corpuscular Volume 86.5 fL (80.0-100.0); Nucleated Red Blood Cells % 4.1 %
[2024-11-20 09:20] LABS: Urine Protein, UAD Negative (Negative)
[2024-11-20 09:30] LABS: Alanine Aminotransferase 26 U/L (7-40); Albumin 4.7 g/dL (3.2-4.8); Alkaline Phosphatase 115 U/L (46-116); Anion Gap 8 (5-15); BUN/Creatinine Ratio 12.5 (10.0-20.0); Bilirubin, Total 0.6 mg/dL (0.2-1.0); Carbon Dioxide 28 mmol/L (20-31); Chloride 105 mmol/L (98-107); Glucose 91 mg/dL (74-106); Potassium 4.0 mmol/L (3.5-5.1); Sodium 141 mmol/L (136-145); Total Protein 7.4 g/dL (5.7-8.2)
[2024-11-20 09:35] LABS: Blood Urea Nitrogen 9 mg/dL (9-23); Calcium 11.1 mg/dL (8.7-10.4)
[2024-11-20 10:10] LABS: Lipase 37 U/L (12-53)
--- NOTE | 2024-11-20 10:55 | DVH ---
INDICATION: RIGHT UPPER ABD PAIN TO MIDDLE BACK TECHNIQUE: Multiple real-time sonographic images were obtained of the right upper quadrant. COMPARISON: None FINDINGS: Diffuse steatosis. Measures 17.4 cm. Simple hepatic cyst is seen centrally measuring up to 1.1 cm. Th e liver measures 17.4 cm. There is no intrahepatic or extrahepatic ductal dilatation. The common du ct measures 0.4 mm. The gallbladder is without evidence of stone or sludge. The gallbladder wall measures 0.1 mm and is within normal limits. Simple cyst is noted measuring up to 1 cm. The right kidney measures 9.1 cm. The right kidney is normal in contour, size, and shape. The echo genicity is normal. There is no hydronephrosis. Simple cyst is noted measuring up to 6.3 cm. Stone i s seen in the midpole measuring up to 0.7 cm The left kidney measures 10.2 cm. The left kidney is normal in contour, size, and shape. The echog enicity is normal. There is no hydronephrosis. The pancreas is not well visualized due to overlying bowel gas. IMPRESSION: 1. No sonographic evidence of gallstones or acute cholecystitis. 2. Right renal nephrolithiasis without hydronephrosis. 3. Hepatic steatosis.
--- NOTE | 2024-11-20 12:24 | DVH ---
Exam: CT CT AB PEL WO CON-NO ORAL OR IV History: RIGHT UPPER ABD PAIN TO RIGHT FLANK Comparison Study: None Technique: Multidetector spiral CT of the abdomen was performed from lung bases to pubic symphysis. Imaging was performed without IV contrast. Axial, coronal and sagittal multiplanar reformats were ob tained from the axial data set by the technologist. Radiation Dose : 1. Abdomen/Pelvis: CTDIvol 11.3 mGy, DLP 591 mGy*cm. Findings: Evaluation of solid organs is limited due to lack of intravenous contrast use. Lung Bases: No acute or significant lung base finding. Normal heart size. No pleural or pericardial effusion. Liver: The liver is normal in size. No focal lesions. Diffuse steatosis. Gallbladder and Biliary Tree: Unremarkable Spleen: Unremarkable Pancreas: The pancreas is grossly normal in appearance. Adrenal Glands: Unremarkable Kidneys: Bilateral nephrolithiasis without hydronephrosis. Bladder: Grossly unremarkable for degree of distention. Bowel: The stomach is grossly normal in appearance. No evidence of bowel obstruction. Focal inflammat ion in the proximal transverse colon may reflect mild diverticulitis. The appendix is not visualized ; however, no secondary findings of acute appendicitis identified. Ascites: Absent Lymphadenopathy: No mesenteric, retroperitoneal or periportal lymphadenopathy. Abdominal Wall and Mesentery: Unremarkable. Vasculature: The visualized abdominal aorta is normal in size and caliber. Evaluation of abdominal a nd pelvic vessels is limited due to lack of intravenous contrast. Pelvic Organs: Unremarkable Musculoskeletal: No aggressive focal bony lesions, acute fractures or dislocation. IMPRESSION: 1. Focal inflammation in the proximal transverse colon may reflect mild diverticulitis. 2. Bilateral nephrolithiasis without hydronephrosis. 3. Hepatic steatosis. Radiation optimization: All CT scans at this facility use at least one of these dose optimization nilton hniques: automated exposure control mA and/or kV adjustment per patient size (includes targeted exam s where dose is matched to clinical indication) or iterative reconstruction.
[2024-11-20] MEDS: KETOROLAC TROMETH 30 MG/ML 1ML VIAL IV ONE (13:19)
[2024-11-20] MEDS: SODIUM CHLORIDE 0.9% 1,000 ML IV ONE (13:19)
[2024-11-20] MEDS ORDERED: ACETAMINOPHEN 325 MG TAB PO PRN (14:30)
[2024-11-20] MEDS ORDERED: ONDANSETRON HCL 4 MG/2 ML VIAL IV PRN (14:30)
--- NOTE | 2024-11-20 15:48 | DVHHP2 ---
History of Present Illness Reason for Visit: Abdominal pain History of Present Illness 64-year-old female presents for evaluation of abdominal pain. Patient reports a two day history of right upper quadrant abdominal pain. She states the pain that is nonradiating. Denies nausea, vomiting or diarrhea. [age] Past Medical History Denies Past Surgical History Denies Family History Denies Smoke: No ALCOHOL: none Drugs: None Lives: with Family Review of Systems Review of Systems Review of systems are currently negative otherwise addressed in HPI. Allergies: Coded Allergies: Codeine (Verified Allergy, Unknown, 10/12/16) Medications Current Medications Medications Dose Ordered Sig/Chidi Route Start Time Stop Time Status Last Admin Dose Admin Ceftriaxone Sodium 50 ml @ 100 mls/hr DAILY@09 IV 11/21/24 09:00 Metronidazole 100 ml @ 100 mls/hr Q8HR IV 11/20/24 22:00 Temazepam 15 mg QHSP PRN PO 11/20/24 14:30 Ondansetron HCl 4 mg Q4HP PRN IV 11/20/24 14:30 Acetaminophen 650 mg Q6HP PRN PO 11/20/24 14:30 Exam Vital Signs Vital Signs Date Time Temp Pulse Resp B/P (MAP) Pulse Ox O2 Delivery O2 Flow Rate FiO2 11/20/24 11:07 98.4 64 18 140/84 (102) 95 98.4 Exam Gen: 64-year-old female in mild distress. Skin: Warm, dry, normal color and texture, no rash. HEENT: Normocephalic atraumatic, mucous membranes moist and pink. Neck: Cervical and supraclavicular nodes normal without enlargement, trachea is midline, thyroid gland is normal without masses. Pulmonary: Clear to auscultation and percussion bilaterally. Cardiac: Regular rate and rhythm. No murmur Abdomen: Soft, right-sided tenderness, nondistended, bowel sounds present all 4 quadrants, no guarding, no rigidity, no organomegaly. Extremities: No cyanosis, clubbing, no edema Neuro: Cranial nerves II through XII grossly intact, normal affect and speech, no focal motor deficits. Labs/Xrays ORDERING PHYSICIAN: JESE CHRIS PROCEDURE(s): GBUS - GALLBLADDER REASON: RIGHT UPPER ABD PAIN TO MIDDLE BACK ORDER NUMBER(s): [id number], ACCESSION NUMBER(s): [id number] INDICATION: RIGHT UPPER ABD PAIN TO MIDDLE BACK TECHNIQUE: Multiple real-time sonographic images were obtained of the right upper quadrant. COMPARISON: None FINDINGS: Diffuse steatosis. Measures 17.4 cm. Simple hepatic cyst is seen centrally measuring up to 1.1 cm. The liver measures 17.4 cm. There is no intrahepatic or extrahepatic ductal dilatation. The common duct measures 0.4 mm. The gallbladder is without evidence of stone or sludge. The gallbladder wall measures 0.1 mm and is within normal limits. Simple cyst is noted measuring up to 1 cm. The right kidney measures 9.1 cm. The right kidney is normal in contour, size, and shape. The echogenicity is normal. There is no hydronephrosis. Simple cyst is noted measuring up to 6.3 cm. Stone is seen in the midpole measuring up to 0.7 cm The left kidney measures 10.2 cm. The left kidney is normal in contour, size, and shape. The echogenicity is normal. There is no hydronephrosis. The pancreas is not well visualized due to overlying bowel gas. IMPRESSION: 1. No sonographic evidence of gallstones or acute cholecystitis. 2. Right renal nephrolithiasis without hydronephrosis. 3. Hepatic steatosis. RING PHYSICIAN: JESE CHRIS PROCEDURE(s): ABPL - CT AB PEL WO CON-NO ORAL OR IV REASON: RIGHT UPPER ABD PAIN TO RIGHT FLANK ORDER NUMBER(s): [id number], ACCESSION NUMBER(s): [id number] Exam: CT CT AB PEL WO CON-NO ORAL OR IV History: RIGHT UPPER ABD PAIN TO RIGHT FLANK Comparison Study: None Technique: Multidetector spiral CT of the abdomen was performed from lung bases to pubic symphysis. Imaging was performed without IV contrast. Axial, coronal and sagittal multiplanar reformats were obtained from the axial data set by the technologist. Radiation Dose : 1. Abdomen/Pelvis: CTDIvol 11.3 mGy, DLP 591 mGy*cm. Findings: Evaluation of solid organs is limited due to lack of intravenous contrast use. Lung Bases: No acute or significant lung base finding. Normal heart size. No pleural or pericardial effusion. Liver: The liver is normal in size. No focal lesions. Diffuse steatosis. Gallbladder and Biliary Tree: Unremarkable Spleen: Unremarkable Pancreas: The pancreas is grossly normal in appearance. Adrenal Glands: Unremarkable Kidneys: Bilateral nephrolithiasis without hydronephrosis. Bladder: Grossly unremarkable for degree of distention. Bowel: The stomach is grossly normal in appearance. No evidence of bowel obstruction. Focal inflammation in the proximal transverse colon may reflect mild diverticulitis. The appendix is not visualized; however, no secondary findings of acute appendicitis identified. Ascites: Absent Lymphadenopathy: No mesenteric, retroperitoneal or periportal lymphadenopathy. Abdominal Wall and Mesentery: Unremarkable. Vasculature: The visualized abdominal aorta is normal in size and caliber. Evaluation of abdominal and pelvic vessels is limited due to lack of intravenous contrast. Pelvic Organs: Unremarkable Musculoskeletal: No aggressive focal bony lesions, acute fractures or dislocation. IMPRESSION: 1. Focal inflammation in the proximal transverse colon may reflect mild diverticulitis. 2. Bilateral nephrolithiasis without hydronephrosis. 3. Hepatic steatosis. Radiation optimization: All CT scans at this facility use at least one of these dose optimization techniques: automated exposure control mA and/or kV adj ustment per patient size (includes targeted exams where dose is matched to clinical indication) or iterative reconstruction. Labs Test 11/20/24 08:51 11/20/24 08:45 Range/Units White Blood Count 11.3 H 4.4-10.8 10^3/uL Red Blood Count 5.60 H 4.0-5.20 10^6/uL Hemoglobin 16.8 H 12.2-16.2 g/dL Hematocrit 48.5 H 36.0-46.0 % Mean Corpuscular Volume 86.5 80.0-100.0 fL Mean Corpuscular Hemoglobin 30.0 28.0-32.0 pg Mean Corpuscular Hemoglobin Concent 34.7 32.0-36.0 g/dL Red Cell Distribution Width 13.7 11.8-14.3 % Platelet Count 287 140-450 10^3/uL Mean Platelet Volume 9.0 6.9-10.8 fL Neutrophils (%) (Auto) 71.3 37.0-80.0 % Lymphocytes (%) (Auto) 17.8 10.0-50.0 % Monocytes (%) (Auto) 8.2 0.0-12.0 % Eosinophils (%) (Auto) 2.0 0.0-7.0 % Basophils (%) (Auto) 0.7 0.0-2.0 % Neutrophils # (Auto) 8.1 1.6-8.6 10 ^3/uL Lymphocytes # (Auto) 2.0 0.4-5.4 10 ^3/uL Monocytes # (Auto) 0.9 0-1.3 10 ^3/uL Eosinophils # (Auto) 0.2 0-0.8 10 ^3/uL Basophils # (Auto) 0.1 0-0.2 10 ^3/uL Nucleated Red Blood Cells 4.1 % Sodium Level 141 136-145 mmol/L Potassium Level 4.0 3.5-5.1 mmol/L Chloride Level 105 98-107 mmol/L Carbon Dioxide Level 28 20-31 mmol/L Anion Gap 8 5-15 Blood Urea Nitrogen 9 9-23 mg/dL Creatinine 0.72 0.550-1.02 mg/dL Glomerular Filtration Rate Calc 93 >90 mL/min BUN/Creatinine Ratio 12.5 10.0-20.0 Serum Glucose 91 74-106 mg/dL Calcium Level 11.1 H 8.7-10.4 mg/dL Total Bilirubin 0.6 0.2-1.0 mg/dL Aspartate Amino Transferase (AST) 24 13-40 U/L Alanine Aminotransferase (ALT) 26 7-40 U/L Alkaline Phosphatase 115 46-116 U/L Total Protein 7.4 5.7-8.2 g/dL Albumin 4.7 3.2-4.8 g/dL Lipase 37 12-53 U/L Urine Color Yellow Yellow Urine Clarity Clear Clear Urine pH 7.0 5.0-9.0 Urine Specific [place] 1.013 1.001-1.035 Urine Protein Negative Negative Urine Ketones Negative Negative Urine Blood Negative Negative /uL Urine Nitrite Negative Negative Urine Bilirubin Negative Negative Urine Urobilinogen Normal Negative mg/dL Urine Leukocyte Esterase Trace Negative /uL Urine RBC 1 0 - 4 /hpf Urine Microscopic WBC 1 0-5 /HPF Urine Squamous Epithelial Cells Few <5 /hpf Urine Bacteria None seen None Seen /hpf Urine Glucose Normal Normal mg/dL SEPSIS Sepsis Screen Date sepsis recognized/suspect: Nov 20, 2024 Time Sepsis recognized/suspect: 839 Recent Procedure: No On Antibiotic Therapy: No Respiratory Rate >20: No Heart Rate >90: Yes Temp<36 C (96.8 F) or >38.3 C: No SBP <90 or MAP <65 mmHG: No New Acute Mental Status Change: No Is the patient on CPAP, BIPAP,: No Physician Orders Gallbladder (11/20/24 08:46) Ct Ab Pel Wo Con-No Oral Or Iv (11/20/24 11:20) Heplock Iv (11/20/24 ) Clear Liq Diet (11/20/24 Dinner) Ceftriaxone 1gm/50ml D5w (Rocephin) (11/21/24 09:00) Metronidazole 500mg/100ml (Flagyl 500mg/ (11/20/24 22:00) Basic Metabolic Panel (11/21/24 04:00) Admit (11/20/24 14:18) Temazepam (Restoril) (11/20/24 14:30) Ondansetron Hcl (Zofran) (11/20/24 14:30) Complete Blood Count (11/21/24 04:00) Condition: Stable (11/20/24 14:18) Acetaminophen Tablet (Tylenol Tablet) (11/20/24 14:30) Bedrest With Bathroom Privileg (11/20/24 14:18) Vital Signs Date Time Temp Pulse Resp B/P (MAP) Pulse Ox O2 Delivery O2 Flow Rate FiO2 11/20/24 11:07 98.4 64 18 140/84 (102) 95 98.4 11/20/24 08:40 98.7 95 16 137/91 (106) 93 98.7 Laboratory Tests Test 11/20/24 08:51 White Blood Count 11.3 10^3/uL (4.4-10.8) H Medications Medications Dose Ordered Sig/Chidi Route Start Time Stop Time Status Last Admin Dose Admin Ketorolac Tromethamine 30 mg ONCE ONCE IV 11/20/24 13:15 11/20/24 13:16 DC 11/20/24 13:19 30 MG Levofloxacin/ Dextrose 100 ml @ 100 mls/hr ONCE ONCE IV 11/20/24 14:00 11/20/24 14:59 DC 11/20/24 15:22 100 MLS/HR Metronidazole 100 ml @ 100 mls/hr ONCE ONCE IV 11/20/24 14:00 11/20/24 14:59 DC 11/20/24 14:41 100 MLS/HR Sodium Chloride 1,000 ml @ 1,000 mls/hr Q1H ONCE IV 11/20/24 13:15 11/20/24 14:14 DC 11/20/24 13:19 1,000 MLS/HR Assessment/Plan Assessment/Plan Assessment Acute diverticulitis Acute abdominal pain Nephrolithiasis Plan Admit the patient to Med surge to the hospitalist Rocephin/Flagyl Clear liquid diet Pain management Resume home medications GI consultation Continue treatment per orders. Plan discussed with: Patient My Orders Orders - JAME JORDAN Procedure Category Date Status Time Clear Liq Diet DIET 11/20/24 Transmitted Dinner Ceftriaxone 1gm/50ml PHA 11/21/24 In Process D5w (Rocephin) 09:00 Metronidazole PHA 11/20/24 In Process 500mg/100ml (Flagyl 22:00 Basic Metabolic Panel LAB 11/21/24 Verified 04:00 Admit ADMIT 11/20/24 Transmitted 14:18 Temazepam (Restoril) PHA 11/20/24 In Process 14:30 Ondansetron Hcl PHA 11/20/24 In Process (Zofran) 14:30 Complete Blood Count LAB 11/21/24 Verified 04:00 Condition: Stable KRISTIAN 11/20/24 In Process 14:18 Acetaminophen Tablet PHA 11/20/24 In Process (Tylenol Tablet) 14:30 Bedrest With Bathroom KRISTIAN 11/20/24 In Process Privileg 14:18 Date of Service: Nov 20, 2024 Billing Provider: JAME JORDAN Common Visit Codes: [id number] INP/OBS CARE (HIGH) JAME JORDAN Nov 20, 2024 15:48
[2024-11-20 18:42] VITALS: BP 137/62; PULSE 66; RESP 18; TEMP 97.6; O2SAT 94
[2024-11-20 22:58] VITALS: BP 144/88; PULSE 58; RESP 16; TEMP 98.4; O2SAT 95
[2024-11-20] MEDS: TEMAZEPAM 15 MG CAP PO PRN (23:31)
[2024-11-21] VITALS (7 sets, daily range): BP systolic 132–141; BP diastolic 75–80; PULSE 61–67; RESP 16–20; TEMP 97.4–98.2; O2SAT 93–95
[2024-11-21 08:02] LABS: Chloride 106 mmol/L (98-107); Potassium 4.4 mmol/L (3.5-5.1); Sodium 143 mmol/L (136-145)
[2024-11-21 08:03] LABS: Anion Gap 8 (5-15); Carbon Dioxide 29 mmol/L (20-31)
[2024-11-21 08:04] LABS: Hematocrit 46.0 % (36.0-46.0); Hemoglobin 15.7 g/dL (12.2-16.2); Mean Corpuscular Hemoglobin 29.7 pg (28.0-32.0); Mean Corpuscular Volume 87.1 fL (80.0-100.0); Nucleated Red Blood Cells % 0.0 %
[2024-11-21 08:08] LABS: BUN/Creatinine Ratio 12.5 (10.0-20.0); Blood Urea Nitrogen 9 mg/dL (9-23); Glucose 94 mg/dL (74-106)
[2024-11-21 08:09] LABS: Calcium 11.0 mg/dL (8.7-10.4)
[2024-11-21] MEDS: cefTRIAXone 1GM/50ML D5W 50 ML IV SCH (08:58)
[2024-11-21] MEDS: D5W/SOD CHL 0.45% 1,000 ML IV SCH (09:52)
--- NOTE | 2024-11-21 13:40 | DVHINCON2 ---
GI Consult Consult Note GI consult note Date of Consultation: 11/21/2024 Chief Complaint: Diverticulitis Referring Physician: Rogelio CANNON H&P: 64-year-old female admitted for evaluation of abdominal pain, which started five days ago and mostly in the right upper quadrant. No fevers or chills. Denies nausea vomiting or diarrhea. Denies melena or red blood in stool. No colonoscopy in past Past Medical History: Denies Past Surgical History: Denies Social History: NO smoking, drinking ETOH and use of illegal drugs. Family History: Noncontributory Review of Systems: Constitutional: no fever, chill, weight loss HEENT: no eye pain, no hearing loss, no oral lesion, no scleral icterus Heart: no chest pain, no chest pressure Lung: no cough, no dyspnea with exertion Abdomen: see HPI Physical exam: General: NAD, AAOX3 Chest: lung yepez clear to auscultation Heart: RRR, no murmur Abdomen: non-distended, no tenderness to palpation, +BS Labs: Labs Test 11/21/24 07:36 11/20/24 08:51 11/20/24 08:45 Range/Units White Blood Count 10.5 4.4-10.8 10^3/uL Red Blood Count 5.28 H 4.0-5.20 10^6/uL Hemoglobin 15.7 12.2-16.2 g/dL Hematocrit 46.0 36.0-46.0 % Mean Corpuscular Volume 87.1 80.0-100.0 fL Mean Corpuscular Hemoglobin 29.7 28.0-32.0 pg Mean Corpuscular Hemoglobin Concent 34.1 32.0-36.0 g/dL Red Cell Distribution Width 13.7 11.8-14.3 % Platelet Count 267 140-450 10^3/uL Mean Platelet Volume 8.6 6.9-10.8 fL Neutrophils (%) (Auto) 74.0 37.0-80.0 % Lymphocytes (%) (Auto) 15.5 10.0-50.0 % Monocytes (%) (Auto) 7.6 0.0-12.0 % Eosinophils (%) (Auto) 2.3 0.0-7.0 % Basophils (%) (Auto) 0.6 0.0-2.0 % Neutrophils # (Auto) 7.8 1.6-8.6 10 ^3/uL Lymphocytes # (Auto) 1.6 0.4-5.4 10 ^3/uL Monocytes # (Auto) 0.8 0-1.3 10 ^3/uL Eosinophils # (Auto) 0.2 0-0.8 10 ^3/uL Basophils # (Auto) 0.1 0-0.2 10 ^3/uL Nucleated Red Blood Cells 0.0 % Sodium Level 143 136-145 mmol/L Potassium Level 4.4 3.5-5.1 mmol/L Chloride Level 106 98-107 mmol/L Carbon Dioxide Level 29 20-31 mmol/L Anion Gap 8 5-15 Blood Urea Nitrogen 9 9-23 mg/dL Creatinine 0.72 0.550-1.02 mg/dL Glomerular Filtration Rate Calc 93 >90 mL/min BUN/Creatinine Ratio 12.5 10.0-20.0 Serum Glucose 94 74-106 mg/dL Calcium Level 11.0 H 8.7-10.4 mg/dL Total Bilirubin 0.6 0.2-1.0 mg/dL Aspartate Amino Transferase (AST) 24 13-40 U/L Alanine Aminotransferase (ALT) 26 7-40 U/L Alkaline Phosphatase 115 46-116 U/L Total Protein 7.4 5.7-8.2 g/dL Albumin 4.7 3.2-4.8 g/dL Lipase 37 12-53 U/L Urine Color Yellow Yellow Urine Clarity Clear Clear Urine pH 7.0 5.0-9.0 Urine Specific [place] 1.013 1.001-1.035 Urine Protein Negative Negative Urine Ketones Negative Negative Urine Blood Negative Negative /uL Urine Nitrite Negative Negative Urine Bilirubin Negative Negative Urine Urobilinogen Normal Negative mg/dL Urine Leukocyte Esterase Trace Negative /uL Urine RBC 1 0 - 4 /hpf Urine Microscopic WBC 1 0-5 /HPF Urine Squamous Epithelial Cells Few <5 /hpf Urine Bacteria None seen None Seen /hpf Urine Glucose Normal Normal mg/dL Imaging: Abdominal ultrasound IMPRESSION: 1. No sonographic evidence of gallstones or acute cholecystitis. 2. Right renal nephrolithiasis without hydronephrosis. 3. Hepatic steatosis. CT abdomen pelvis IMPRESSION: 1. Focal inflammation in the proximal transverse colon may reflect mild diverticulitis. 2. Bilateral nephrolithiasis without hydronephrosis. 3. Hepatic steatosis. Assessment: Abdominal pain Diverticulitis Nephrolithiasis Hepatic steatosis Plan: Discussed with Dr. Juan Continue antibiotic Monitor labs Full liquid diet Outpatient GI follow-up recommended for possible plan of elective colonoscopy discussed Plan discussed with patient and RN Thank you for this consult Date of Service: Nov 21, 2024 Billing Provider: ROMANA AYALA Common Visit Codes: CONSULT ONLY Consultation Codes: [id number] CONSULT <45MIN ROMANA AYALA Nov 21, 2024 13:40
[2024-11-21] MEDS: TAMSULOSIN HYDROCHLORIDE 0.4 MG CAP PO SCH (17:32)
--- NOTE | 2024-11-21 17:46 | DVHPNRES ---
Progress Note Date Seen: Nov 21, 2024 Resident Creating Document: PEREZ LALA RESIDENT Medical Necessity Reason Pt with a Central, PICC or Fol: No Subjective Review of Systems Merna Valentin 64 in, with past medical history of HTN, asthma and anxiety. Presented to ED with complaints of difficulty breathing, abdominal pain. Since Sunday she started complaining of difficulty breathing and discomfort, initially she attributed the difficulty to her asthma attacks. She used her asthma medications- inhaler and breathing treatment to help with difficulty breathing. Her symptoms did not subside with the that. She also started complaining of intractable abdominal pain, after which she went to ED. The pain was sharp and burning, increases with breathing, associated with diarrhea, loose stools for 5 days. She had normal bowel and bladder habits before that. She also has a history of passing kidney stone 2-[address] scan shows focal inflammation in the proximal transverse colon reflective of diverticulitis, bilateral nephrolithiasis and hepatic steatosis. In the ED she was treated with IV fluids and IV antibiotics. We will continue monitoring and managing. 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 The tumor was removed in 2019. She also had a lung repair surgery in October 2020. Tonsillectomy in childhood ( 15 years of age) Personal history: Nonsmoker nonalcoholic no recreational drugs. Lives in home. Family history: Both parents have diabetes mellitus including all uncles and aunts. Hypertension in family. ROS: Constitutional: Denies weight loss, fever and chills. HEENT: Denies changes in vision and hearing. Respiratory: Difficulty breathing Cardiovascular: Chest discomfort GI: Intractable abdominal pain, diarrhea : Denies dysuria and urinary frequency. Musculoskeletal: Denies myalgias and joint pain Skin: Denies rash and pruritus. Neurological: Denies dizziness, headache, vision or hearing problems Objective vital signs Vital Sign Date Time Temp Pulse Resp B/P (MAP) Pulse Ox O2 Delivery O2 Flow Rate FiO2 11/21/24 13:00 98.2 61 17 138/79 (98) 95 98.2 11/21/24 08:00 Room Air* 0 21 Total Intake and Output 11/20/24 11/20/24 11/21/24 15:00 23:00 07:00 Intake Total 1200 ml 300 ml Balance 1200 ml 300 ml medications Current Medications Medications Dose Ordered Sig/Chidi Route Start Time Stop Time Status Last Admin Dose Admin Ceftriaxone Sodium 50 ml @ 100 mls/hr DAILY@09 IV 11/21/24 09:00 11/21/24 08:58 100 MLS/HR Metronidazole 100 ml @ 100 mls/hr Q8HR IV 11/20/24 22:00 11/21/24 14:28 100 MLS/HR Temazepam 15 mg QHSP PRN PO 11/20/24 14:30 11/20/24 23:31 15 MG Ondansetron HCl 4 mg Q4HP PRN IV 11/20/24 14:30 Acetaminophen 650 mg Q6HP PRN PO 11/20/24 14:30 Dextrose/Sodium Chloride 1,000 ml @ 125 mls/hr Q8H IV 11/21/24 09:00 11/21/24 16:58 125 MLS/HR Tamsulosin HCl 0.4 mg QPM PO 11/21/24 18:00 Examination General: Patient alert and oriented in person, place and time. Patient following commands. HEENT: Normocephalic, atraumatic, moist mucous membranes Respiratory/pulmonary: Clear lungs bilaterally, no associated crackles or wheezes. Cardiovascular: Normal heart sounds S1 and S2 with no associated murmurs Abdomen: Abdomen tender to palpation in right upper quadrant, nondistended. Increased tenderness while breathing, positive Orantes sign. Extremities: There is no peripheral edema present at the lower extremities. Peripheral Pulses: 3+ Radial (R). 3+ Radial (L). 3+ Dorsalis pedis (R). 3+ Dorsalis pedis(L) Skin: No rashes or pruritus, there is no sacral edema present at this time. Neurological: Intact cranial nerves with no focal neurologic deficits laboratory and microbiology Laboratory Tests 11/21/24 07:36 Test 11/21/24 07:36 Range/Units Serum Glucose 94 74-106 mg/dL Problem List/Assessment/Plan Problem List/Assessment/Plan #Acute intractable abdominal pain, due to Acute diverticulitis, likely #Acute cholecystitis, ruled out -CT shows focal inflammation of transverse colon -Ultrasound and CT scan negative for gallstones. -Started on IV fluids. -Started on IV ceftriaxone, metronidazole. #Acute nephrolithiasis, right-sided -Right renal nephrolithiasis without hydronephrosis seen on ultrasound. -CT scan shows bilateral nephrolithiasis without hydronephrosis. -Continue tamsulosin #Hypertension -Continue amlodipine. #Anxiety -Continue home medications (Lexapro, lorazepam) as needed #Overweight with BMI 29.4 #Hepatic steatosis -CT shows hepatic steatosis Plan discussed with: Patient Date of Service: Nov 21, 2024 Billing Provider: JOSHUA SOSA MD Common Visit Codes: [id number] INP/OBS CARE(HIGH) PEREZ LALA RESIDENT Nov 21, 2024 17:46 JOSHUA SOSA MD Nov 24, 2024 00:12
[2024-11-22 01:00] VITALS: BP_SYST 105; BP_SYST 115; BP_DIAS 41; BP_DIAS 59; PULSE 118; PULSE 63; RESP 18; RESP 20; TEMP 97.1; TEMP 98.5; O2SAT 94; O2SAT 95
[2024-11-22 05:00] VITALS: BP_SYST 112; BP_SYST 145; BP_DIAS 63; BP_DIAS 79; PULSE 66; PULSE 85; RESP 18; RESP 20; TEMP 97; TEMP 98.7; O2SAT 94; O2SAT 96
[2024-11-22 06:12] LABS: Hematocrit 43.8 % (36.0-46.0); Hemoglobin 15.4 g/dL (12.2-16.2); Mean Corpuscular Hemoglobin 30.2 pg (28.0-32.0); Mean Corpuscular Volume 86.1 fL (80.0-100.0); Nucleated Red Blood Cells % 0.0 %
[2024-11-22 06:19] LABS: Alanine Aminotransferase 19 U/L (7-40); Albumin 3.8 g/dL (3.2-4.8); Alkaline Phosphatase 96 U/L (46-116); Anion Gap 7 (5-15); BUN/Creatinine Ratio 10.1 (10.0-20.0); Blood Urea Nitrogen 7 mg/dL (9-23); Calcium 9.9 mg/dL (8.7-10.4); Carbon Dioxide 29 mmol/L (20-31); Chloride 107 mmol/L (98-107); Glucose 107 mg/dL (74-106); Potassium 4.2 mmol/L (3.5-5.1); Sodium 143 mmol/L (136-145); Total Protein 6.2 g/dL (5.7-8.2)
[2024-11-22 06:20] LABS: Bilirubin, Total 0.5 mg/dL (0.2-1.0)
[2024-11-22 09:00] VITALS: BP 135/76; PULSE 63; RESP 18; TEMP 97.7; O2SAT 95
[2024-11-22 12:37] VITALS: BP 127/69; PULSE 60; RESP 18; TEMP 98; O2SAT 92
[2024-11-22 13:37] VITALS: BP 127/69; PULSE 60; RESP 18; TEMP 98; O2SAT 92
--- NOTE | 2024-11-22 13:46 | DVHDSRES ---
Discharge Summary Date of Admission Resident Creating Document: BOB ROOT RESIDENT Nov 20, 2024 at 14:18 Date of Discharge: Nov 22, 2024 Labs/Diagnostic Data: Laboratory Results Test 11/22/24 05:29 11/20/24 08:51 11/20/24 08:45 White Blood Count 9.5 10^3/uL (4.4-10.8) Red Blood Count 5.08 10^6/uL (4.0-5.20) Hemoglobin 15.4 g/dL (12.2-16.2) Hematocrit 43.8 % (36.0-46.0) Mean Corpuscular Volume 86.1 fL (80.0-100.0) Mean Corpuscular Hemoglobin 30.2 pg (28.0-32.0) Mean Corpuscular Hemoglobin Concent 35.1 g/dL (32.0-36.0) Red Cell Distribution Width 13.5 % (11.8-14.3) Platelet Count 262 10^3/uL (140-450) Mean Platelet Volume 8.9 fL (6.9-10.8) Neutrophils (%) (Auto) 67.4 % (37.0-80.0) Lymphocytes (%) (Auto) 18.3 % (10.0-50.0) Monocytes (%) (Auto) 9.9 % (0.0-12.0) Eosinophils (%) (Auto) 3.8 % (0.0-7.0) Basophils (%) (Auto) 0.6 % (0.0-2.0) Neutrophils # (Auto) 6.4 10 ^3/uL (1.6-8.6) Lymphocytes # (Auto) 1.7 10 ^3/uL (0.4-5.4) Monocytes # (Auto) 0.9 10 ^3/uL (0-1.3) Eosinophils # (Auto) 0.4 10 ^3/uL (0-0.8) Basophils # (Auto) 0.1 10 ^3/uL (0-0.2) Nucleated Red Blood Cells 0.0 % Sodium Level 143 mmol/L (136-145) Potassium Level 4.2 mmol/L (3.5-5.1) Chloride Level 107 mmol/L (98-107) Carbon Dioxide Level 29 mmol/L (20-31) Anion Gap 7 (5-15) Blood Urea Nitrogen 7 mg/dL (9-23) Creatinine 0.69 mg/dL (0.550-1.02) Glomerular Filtration Rate Calc 96 mL/min (>90) BUN/Creatinine Ratio 10.1 (10.0-20.0) Serum Glucose 107 mg/dL (74-106) Calcium Level 9.9 mg/dL (8.7-10.4) Total Bilirubin 0.5 mg/dL (0.2-1.0) Aspartate Amino Transferase (AST) 18 U/L (13-40) Alanine Aminotransferase (ALT) 19 U/L (7-40) Alkaline Phosphatase 96 U/L (46-116) Total Protein 6.2 g/dL (5.7-8.2) Albumin 3.8 g/dL (3.2-4.8) Lipase 37 U/L (12-53) Urine Color Yellow (Yellow) Urine Clarity Clear (Clear) Urine pH 7.0 (5.0-9.0) Urine Specific [place] 1.013 (1.001-1.035) Urine Protein Negative (Negative) Urine Ketones Negative (Negative) Urine Blood Negative /uL (Negative) Urine Nitrite Negative (Negative) Urine Bilirubin Negative (Negative) Urine Urobilinogen Normal mg/dL (Negative) Urine Leukocyte Esterase Trace /uL (Negative) Urine RBC 1 /hpf (0 - 4) Urine Microscopic WBC 1 /HPF (0-5) Urine Squamous Epithelial Cells Few /hpf (<5) Urine Bacteria None seen /hpf (None Seen) Urine Glucose Normal mg/dL (Normal) Other Laboratory Tests 11/22/24 05:29 Brief Hx & Hospital Course: Merna Valentin 64 in, with past medical history of HTN, asthma and anxiety. Presented to ED with complaints of difficulty breathing, abdominal pain. Since Sunday she started complaining of difficulty breathing and discomfort, initially she attributed the difficulty to her asthma attacks. She used her asthma medications- inhaler and breathing treatment to help with difficulty breathing. Her symptoms did not subside with the that. She also started complaining of intractable abdominal pain, after which she went to ED. The pain was sharp and burning, increases with breathing, associated with diarrhea, loose stools for 5 days. She had normal bowel and bladder habits before that. She also has a history of passing kidney stone 2-[address] scan shows focal inflammation in the proximal transverse colon reflective of diverticulitis, bilateral nephrolithiasis and hepatic steatosis. In the ED she was treated with IV fluids and IV antibiotics. We will continue monitoring and managing. 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 The tumor was removed in 2019. She also had a lung repair surgery in October 2020. Tonsillectomy in childhood ( 15 years of age) Personal history: Nonsmoker nonalcoholic no recreational drugs. Lives in home. Family history: Both parents have diabetes mellitus including all uncles and aunts. Hypertension in family. 11/22/24: Today, has been examined at bedside, vital signs were reviewed. Laboratories today are within normal limits. Patient reports abdominal pain has improved 2/10, denies nausea, vomit, fever, diarrhea. The patient will be discharge today. The Patient will continue full liquid diet for 1 to 2 weeks, tamsulosin for 2 weeks and follow up with PCP in one week. ROS: Constitutional: Denies weight loss, fever and chills. HEENT: Denies changes in vision and hearing. Respiratory: Difficulty breathing Cardiovascular: Chest discomfort GI: No abdominal pain, no diarrhea : Denies dysuria and urinary frequency. Musculoskeletal: Denies myalgias and joint pain Skin: Denies rash and pruritus. Neurological: Denies dizziness, headache, vision or hearing problems Physical Exam: General: Patient alert and oriented in person, place and time. Patient following commands. HEENT: Normocephalic, atraumatic, moist mucous membranes Respiratory/pulmonary: Clear lungs bilaterally, no associated crackles or wheezes. Cardiovascular: Normal heart sounds S1 and S2 with no associated murmurs Abdomen: pain in right quadrant has improved 2/10, nondistended. Extremities: There is no peripheral edema present at the lower extremities. Peripheral Pulses: 3+ Radial (R). 3+ Radial (L). 3+ Dorsalis pedis (R). 3+ Dorsalis pedis(L) Skin: No rashes or pruritus, there is no sacral edema present at this time. Neurological: Intact cranial nerves with no focal neurologic deficits Problem List/Assessment/Plan #Sepsis due to acute diverticulitis w/o abscess. #Acute intractable abdominal pain, due to Acute diverticulitis, likely #Acute cholecystitis, ruled out -CT shows focal inflammation of transverse colon -Ultrasound and CT scan negative for gallstones. -Started on IV fluids. -Started on IV ceftriaxone, metronidazole. #Acute nephrolithiasis, right-sided -Right renal nephrolithiasis without hydronephrosis seen on ultrasound. -CT scan shows bilateral nephrolithiasis without hydronephrosis. -Continue tamsulosin #Hypertension -Continue amlodipine. #Anxiety -Continue home medications (Lexapro, lorazepam) as needed #Overweight with BMI 29.4 #Hepatic steatosis -CT shows hepatic steatosis Code status: Full code Plan discussed with Dr. Clarke , nursing staff, Total time spent on patient evaluation, chart review, assessment and plan, discussion discussion >35 minutes Plan discussed with: Patient, patients agrees with the plan. Condition at Discharge: Stable Final Diagnosis/Problems List Sepsis due to acute diverticulitis w/o absces Nepholithiasis right sided Discharge Disposition: Home SNF Discharge Will this Physician continue t: No Discharge Instruct/Medications Diet: See Comment Diet comment: Continue full liquid diet for 1-2 weeks. Activity: No Restrictions, As Tolerated Follow Up/Referral: F/U with PCP in one week Medications: Tamsulosin 0.45mg po qd for 2 weeks Augmenting 500mg /125mg po qd for 7 days Scheduled Amoxicillin & Pot Clavulanate (Augmentin Tablet), 875 MG PO BID Tamsulosin Hcl (Flomax), 0.4 MG PO QPM Discharge Statement: "Patient was advised to return to the ER or call 911 if any headaches, dizziness, shortness of breath, chest pain, abdominal pain, bleeding, fevers, or worsening of medical condition. Patient was counseled about treatment plan, medications, possible side effects, patientverbalized understanding. All questions were answered to the best of my ability. This discharge took greater then 30 minutes in planning, reviewing documentation, counseling the patient, and discussing with other team members." ASSESSMENT ASSESSMENT Assessment Sepsis due to acute diverticulitis w/o absces Nepholithiasis right sided Date of Service: Nov 22, 2024 Billing Provider: JOSHUA SOSA MD Common Visit Codes: 17155-SQZ/OBS DISCH DAY >30min BOB ROOT RESIDENT Nov 22, 2024 13:46 JOSHUA SOSA MD Nov 24, 2024 21:39
[2024-11-22] MEDS ORDERED: AUG875T PO (13:57)
[2024-11-22] MEDS ORDERED: TAMS-35 PO (13:57)
[2024-11-22 16:42] VITALS: BP 134/76; PULSE 63; RESP 18; TEMP 98.3; O2SAT 95
--- NOTE | 2024-11-22 21:06 | DVHPN2 ---
Progress Note - Dictate Date Seen: Nov 22, 2024 (Late entryPatient seen at 10:00 a.m.) Medical Necessity Reason Pt with a Central, PICC or Fol: No Subjective No new complaints Abdominal pain has resolved Patient is tolerating diet She has not had a prior colonoscopy vital signs Vital Sign Date Time Temp Pulse Resp B/P (MAP) Pulse Ox O2 Delivery O2 Flow Rate FiO2 11/22/24 16:42 98.3 63 18 134/76 (95) 95 98.3 11/22/24 08:00 Room Air* 0 21 Total Intake and Output 11/21/24 11/21/24 11/22/24 15:00 23:00 07:00 Intake Total 50 ml 1835 ml 700 ml Balance 50 ml 1835 ml 700 ml objective General: NAD, AAOX3 Chest: lung yepez clear to auscultation Heart: RRR, no murmur Abdomen: non-distended, no tenderness to palpation, +BS laboratory and microbiology Laboratory Tests 11/22/24 05:29 Test 11/22/24 05:29 Range/Units Serum Glucose 107 H 74-106 mg/dL Problems(with codes): (1) Abnormal finding on GI tract imaging (2) Abdominal pain (3) Acute diverticulitis Prognosis Plan Advance diet as tolerated ; continue antibiotics for 5-7 days Outpatient follow up with me in 4-6 weeks to discuss elective colonoscopy once acute inflammation has subsided Dietary Evaluation Review Recommendations by RD: Dietary education by RD Comments: 1) Advance to cardiac diet when medically feasible 2) Encourage optimal PO intake 3) Refer to outpatient RD for weight management 4) Follow-up with gastroenterology and urology 5) Continue to monitor I&O, labs, and skin integrity Expected Outcomes/Goals: 1) Advance to cardiac diet when medically feasible 2) Encourage optimal PO intake 3) Refer to outpatient RD for weight management 4) Follow-up with gastroenterology and urology 5) Continue to monitor I&O, labs, and skin integrity Plan discussed with: Patient JENNIFER BROWN MD Nov 22, 2024 21:06
== END 2024-11-22 17:10 | disposition home or self-care (01) | DRG 872 ==
LOC: ER 08:35 → OVERFLOW 14:18 → EAST 22:20
PROVIDERS: ADMIT Student in an Organized Health Care Education/Training Program; ATTEND Physician Assistant
DX: A41.9 Sepsis, unspecified organism (principal); K57.32 Diverticulitis of large intestine without perforation or abscess without bleeding; I10 Essential (primary) hypertension; K76.0 Fatty (change of) liver, not elsewhere classified; N20.0 Calculus of kidney; F41.9 Anxiety disorder, unspecified; E66.3 Overweight; Z68.29 Body mass index [BMI] 29.0-29.9, adult; Z88.5 Allergy status to narcotic agent
CPT/HCPCS: 36415; 74176; 76705; 80048; 80053; 81001; 83690; 85025; 96365; 96375; G0378; J1885; J1956; J3490

== ENCOUNTER 2025-03-09 07:37 | Outpatient (CLI) | payer MEDICARE, BC ==
[~2025-03-09 07:37] MED LIST changes: +AUG875T PO; -IOHEXOL 300 MG/ML 100ML BOTTLE IJ ONE; +TAMS-35 PO
[2025-03-09 08:07] LABS: Hematocrit 46.3 % (36.0-46.0); Hemoglobin 16.3 g/dL (12.2-16.2); Mean Corpuscular Hemoglobin 30.2 pg (28.0-32.0); Mean Corpuscular Volume 85.9 fL (80.0-100.0); Nucleated Red Blood Cells % 0.1 %
[2025-03-09 08:18] LABS: Urine Protein, UAD Negative (Negative)
[2025-03-09 08:31] LABS: Alanine Aminotransferase 22 U/L (7-40); Albumin 4.4 g/dL (3.2-4.8); Alkaline Phosphatase 105 U/L (46-116); Anion Gap 9 (5-15); BUN/Creatinine Ratio 13.7 (10.0-20.0); Bilirubin, Total 0.7 mg/dL (0.2-1.0); Blood Urea Nitrogen 10 mg/dL (9-23); Carbon Dioxide 30 mmol/L (20-31); Chloride 103 mmol/L (98-107); Cholesterol 195 mg/dL (< 200); Glucose 100 mg/dL (74-106); HDL Cholesterol 53 mg/dL (40-59); Potassium 4.1 mmol/L (3.5-5.1); Sodium 142 mmol/L (136-145); Total Protein 7.7 g/dL (5.7-8.2); Triglycerides 100 mg/dL (< 150)
[2025-03-09 08:52] LABS: Calcium 10.6 mg/dL (8.7-10.4)
== END 2025-03-09 17:00 | disposition home or self-care (01) ==
LOC: LAB 07:37
PROVIDERS: ATTEND Student in an Organized Health Care Education/Training Program
DX: I10 Essential (primary) hypertension (principal); E55.9 Vitamin D deficiency, unspecified; R73.9 Hyperglycemia, unspecified; Z12.11 Encounter for screening for malignant neoplasm of colon
CPT/HCPCS: 36415; 80053; 80061; 81001; 82306; 83036; 84443; 85025